=== PATIENT | female | born 1985 | race Caucasian/White ===

== ENCOUNTER 2024-05-29 07:34 | Inpatient (IN) | payer OTHER ==
[~2024-05-29] VITALS: Ht 162.6 cm; Wt 92.2 kg
[~2024-05-29 07:34] MED LIST: Prednisone20 MG PO
[2024-05-29] MEDS ORDERED: Ondansetron HCl 2 MG / ML 2ML Vial ONE (07:38)
[2024-05-29] MEDS ORDERED: Ondansetron HCl 2 MG / ML 2ML Vial IV ONE (07:45)
[2024-05-29] MEDS ORDERED: HYDROmorphone HCl/Pf 1MG SYR IV ONE ×2 (07:45→12:00)
[2024-05-29 07:59] LABS: BASOPHILS ABSOLUTE AUTO 0.08 K/mm3 (0.00-0.23); BASOPHILS PERCENT AUTO 0 % (0-2); EOSINOPHILS ABSOLUTE AUTO 0.18 K/mm3 (0.00-0.68); EOSINOPHILS PERCENT AUTO 1 % (0-6); Hematocrit 51.9 % (33.0-51.0); Hemoglobin 17.4 g/dL (11.5-16.0); IMMATURE GRAN ABSOLUTE AUTO 0.28 K/mm3 (0.00-0.10); IMMATURE GRAN PERCENT AUTO 1 % (0-1); LYMPHOCYTES ABSOLUTE AUTO 4.32 K/mm3 (0.84-5.20); LYMPHOCYTES PERCENT AUTO 19 % (21-46); MONOCYTES ABSOLUTE AUTO 0.76 K/mm3 (0.16-1.47); MONOCYTES PERCENT AUTO 3 % (4-13); Mean Corpuscular HGB 30.6 pg (26.0-34.0); Mean Corpuscular HGB Conc 33.5 g/dL (31.5-36.5); Mean Corpuscular Volume 91 fL (80-100); Mean Platelet Volume 9.6 fL (9.1-12.4); NEUTROPHILS ABSOLUTE AUTO 17.36 K/mm3 (1.96-9.15); NEUTROPHILS PERCENT AUTO 76 % (41-73); Platelet Count 532 K/mm3 (150-400); RDW Coefficient Variation 12.4 % (11.7-14.2); RDW Standard Deviation 41.1 fL (35.1-46.3); Red Blood Cell Count 5.69 M/mm3 (3.80-5.20); White Blood Cell Count 22.98 K/mm3 (4.00-11.30)
[2024-05-29] MEDS ORDERED: ESCI10 PO (08:09)
[2024-05-29 08:17] LABS: Albumin, Blood 3.9 g/dL (3.4-5.0); Bilirubin, Total 0.4 mg/dL (0.1-1.0); Calcium, Blood 9.4 mg/dL (8.5-10.1); Globulin, Blood 4.1 g/dL (2.2-4.0); Magnesium, Blood 2.1 mg/dL (1.6-2.4); Potassium, Blood 3.2 mmol/L (3.5-5.5)
[2024-05-29] MEDS ORDERED: NS 1,000 ML IV SCH (08:30)
[2024-05-29] MEDS ORDERED: Piperacillin/Tazobactam Sod 3.375 GM in NS 100 ML IV ONE (09:25)
[2024-05-29] MEDS ORDERED: Lactated Ringer's 1,000 ML IV ONE (09:35)
[2024-05-29] MEDS ORDERED: HYDROmorphone HCl/Pf 1MG SYR IV PRN (13:00)
[2024-05-29] MEDS ORDERED: Ondansetron HCl 2 MG / ML 2ML Vial IV PRN ×2 (13:00)
[2024-05-29] MEDS ORDERED: Lactated Ringer's 1,000 ML IV SCH (13:00)
[2024-05-29 14:11] LABS: BASOPHILS ABSOLUTE AUTO 0.03 K/mm3 (0.00-0.23); BASOPHILS PERCENT AUTO 0 % (0-2); EOSINOPHILS PERCENT AUTO 0 % (0-6); Hematocrit 37.2 % (33.0-51.0); Hemoglobin 13.2 g/dL (11.5-16.0); IMMATURE GRAN ABSOLUTE AUTO 0.05 K/mm3 (0.00-0.10); IMMATURE GRAN PERCENT AUTO 0 % (0-1); LYMPHOCYTES ABSOLUTE AUTO 0.99 K/mm3 (0.84-5.20); LYMPHOCYTES PERCENT AUTO 6 % (21-46); MONOCYTES ABSOLUTE AUTO 0.45 K/mm3 (0.16-1.47); MONOCYTES PERCENT AUTO 3 % (4-13); Mean Corpuscular HGB 31.8 pg (26.0-34.0); Mean Corpuscular HGB Conc 35.5 g/dL (31.5-36.5); Mean Corpuscular Volume 90 fL (80-100); Mean Platelet Volume 9.8 fL (9.1-12.4); NEUTROPHILS ABSOLUTE AUTO 14.11 K/mm3 (1.96-9.15); NEUTROPHILS PERCENT AUTO 90 % (41-73); Platelet Count 358 K/mm3 (150-400); RDW Coefficient Variation 12.4 % (11.7-14.2); RDW Standard Deviation 40.5 fL (35.1-46.3); Red Blood Cell Count 4.15 M/mm3 (3.80-5.20); White Blood Cell Count 15.63 K/mm3 (4.00-11.30)
[2024-05-29 15:22] VITALS: BP 116/83
--- NOTE | 2024-05-29 16:46 | NUR ---
THIS MUD GRINDER OFFERED TO PUT ON SCDS.PATIENT DECLINED AT THIS TIME.RN NOTIFIED.
[2024-05-29] MEDS ORDERED: Piperacillin/Tazobactam Sod 4.5 GM in NS 100 ML IV SCH (17:00)
--- NOTE | 2024-05-29 18:12 | NUR ---
PT QUITE PLEASANT AND COOPERATIVE SINCE ADMIT THIS AFT. AMBULATING TO BATHROOM IND TO SBA. IN TO VISIT THIS MARIZA. PT DID HAVE COUPLE SMALL SPOTS OF BLOOD IN URINE THIS MARIZA. HR REG, NO MURMUR NO EDEMA. LUNGS CLEAR, RESP EASY, UNLABORED. ON R.A. NO SOB, IV FLUIDS STARTED PER EMAR. NO C/O PAIN, BED IN LOW POSITION, CALL LITE IN REACH, CALLS APROP
[2024-05-29] MEDS ORDERED: Potassium Chloride 40 MEQ in NS 250 ML IV ONE (18:30)
[2024-05-29 19:04] VITALS: BP 121/82
[2024-05-29] MEDS ORDERED: Potassium Chloride 20 MEQ/15 ML UDC PO ONE (20:25)
[2024-05-29] MEDS ORDERED: Lactobacil 2-S.Thermo-Bifido 1 1 Cap PO SCH (21:00)
[2024-05-29] MEDS ORDERED: NS 250 ML IV PRN (22:20)
[2024-05-30 04:50] VITALS: BP 115/77
--- NOTE | 2024-05-30 05:08 | NUR ---
SHIFT SUMMARY NOC PT A/O X 4. PLEASANT AND COOPERATIVE WITH CARE. VSS. PT TOLERATING CLEAR LIQUID DIET WELL. ON TELE SINUS IN 'S. PT PAIN BEING MANAGED PER EMAR. GI PCR STILL OUTSTANDING. LR INFUSING @ 100 ML/HR BAG 2/. IV ABX Q6H. PT HAS BLOOD IN URINE, BUT CURRENTLY IS MENSTRUATING. PT CURRENTLY RESTING WITH SPOUSE BEDSIDE, BED IN LOWEST POSITION, AND CALL LIGHT WITHIN REACH.
[2024-05-30 05:26] LABS: BASOPHILS ABSOLUTE AUTO 0.03 K/mm3 (0.00-0.23); BASOPHILS PERCENT AUTO 0 % (0-2); EOSINOPHILS ABSOLUTE AUTO 0.06 K/mm3 (0.00-0.68); EOSINOPHILS PERCENT AUTO 1 % (0-6); Hematocrit 38.2 % (33.0-51.0); Hemoglobin 12.7 g/dL (11.5-16.0); IMMATURE GRAN ABSOLUTE AUTO 0.03 K/mm3 (0.00-0.10); IMMATURE GRAN PERCENT AUTO 0 % (0-1); LYMPHOCYTES ABSOLUTE AUTO 2.96 K/mm3 (0.84-5.20); LYMPHOCYTES PERCENT AUTO 28 % (21-46); MONOCYTES ABSOLUTE AUTO 0.67 K/mm3 (0.16-1.47); MONOCYTES PERCENT AUTO 6 % (4-13); Mean Corpuscular HGB 30.7 pg (26.0-34.0); Mean Corpuscular HGB Conc 33.2 g/dL (31.5-36.5); Mean Corpuscular Volume 92 fL (80-100); Mean Platelet Volume 10.2 fL (9.1-12.4); NEUTROPHILS ABSOLUTE AUTO 7.03 K/mm3 (1.96-9.15); NEUTROPHILS PERCENT AUTO 65 % (41-73); Platelet Count 332 K/mm3 (150-400); RDW Coefficient Variation 12.7 % (11.7-14.2); RDW Standard Deviation 43.1 fL (35.1-46.3); Red Blood Cell Count 4.14 M/mm3 (3.80-5.20); White Blood Cell Count 10.78 K/mm3 (4.00-11.30)
[2024-05-30 05:49] LABS: Calcium, Blood 8.9 mg/dL (8.5-10.1); Creatinine, Blood 0.75 mg/dL (0.40-1.00); Potassium, Blood 3.7 mmol/L (3.5-5.5)
[2024-05-30 07:27] VITALS: BP 119/81
[2024-05-30] MEDS ORDERED: Citalopram Hydrobromide 20 MG Tab PO SCH (09:00)
[2024-05-30 14:30] VITALS: BP 143/106
[2024-05-30 15:03] VITALS: BP 111/71
--- NOTE | 2024-05-30 15:04 | NUR ---
ASSUMPTION OF CARE THIS RN ASSUMED CARE FOLLOWING REPORT FROM ZAIRA ELDER. PATIENT ALERT AND ORIENTED X4. INDEPENDENT IN ROOM. COMMUNICATING NEEDS EFFECTIVELY. ABD PAIN 2/10 FOLLOWING IV DILAUDID ADMINISTRATION PRIOR TO ASSUMPTION OF CARE. VSS. TELEMETRY SHOWING SINUS 72. BP IMPROVED W/ PAIN MANAGEMENT. ON ROOM AIR, SATs >90%. DENIES N/V. AWAITING GI PANEL - STOOL SAMPLE SENT PRIOR TO ASSUMPTION OF CARE. VOIDING. CALL LIGHT IN REACH. SPOUSE AT BEDSIDE.
[2024-05-30 16:13] LABS: Adenovirus F 40/41 Not Detected (NOT DETECT); Astrovirus Not Detected (NOT DETECT); Campylobacter Sp Not Detected (NOT DETECT); Cryptosporidium Not Detected (NOT DETECT); Cyclospora Cayetanensis Not Detected (NOT DETECT); E. Coli O157 Not Detected (NOT DETECT); Entamoeba Histolytica Not Detected (NOT DETECT); Enteroaggregative E. coli-EAEC Not Detected (NOT DETECT); Enteropathogenic E. coli-EPEC Not Detected (NOT DETECT); Enterotoxigenic E. coli-ETEC Not Detected (NOT DETECT); Giardia Lamblia Not Detected (NOT DETECT); Norovirus GI/GII Not Detected (NOT DETECT); Plesiomonas Shigelloides Not Detected (NOT DETECT); Rotavirus A Not Detected (NOT DETECT); Salmonella Sp Not Detected (NOT DETECT); Sapovirus Not Detected (NOT DETECT); Shiga Toxin-prod E. coli-STEC Not Detected (NOT DETECT); Shigella/Enteroin E. coli-EIEC Not Detected (NOT DETECT); Vibrio Cholerae Not Detected (NOT DETECT); Vibrio Sp Not Detected (NOT DETECT); Yersinia Enterocolitica Not Detected (NOT DETECT)
--- NOTE | 2024-05-30 17:31 | NUR ---
SHIFT SUMMARY NO ACUTE CHANGES SINCE ASSUMPTION OF CARE NOTE. PATIENT REMAINS ALERT AND ORIENTED X4. INDEPENDENT IN ROOM. COMMUNICATES NEEDS EFFECTIVELY. VSS. DENIES ABD PAIN AT THIS TIME. TOLERATING CLEAR LIQUID DIET. GI PANEL RESULTS NEGATIVE. CALL LIGHT IN REACH.
[2024-05-30 19:41] VITALS: BP 109/86
[2024-05-31 00:04] VITALS: BP 113/78
[2024-05-31 04:18] VITALS: BP 107/79
[2024-05-31 04:32] LABS: BASOPHILS ABSOLUTE AUTO 0.04 K/mm3 (0.00-0.23); BASOPHILS PERCENT AUTO 1 % (0-2); EOSINOPHILS ABSOLUTE AUTO 0.25 K/mm3 (0.00-0.68); EOSINOPHILS PERCENT AUTO 4 % (0-6); Hematocrit 34.6 % (33.0-51.0); Hemoglobin 11.8 g/dL (11.5-16.0); IMMATURE GRAN ABSOLUTE AUTO 0.02 K/mm3 (0.00-0.10); IMMATURE GRAN PERCENT AUTO 0 % (0-1); LYMPHOCYTES ABSOLUTE AUTO 2.65 K/mm3 (0.84-5.20); LYMPHOCYTES PERCENT AUTO 40 % (21-46); MONOCYTES ABSOLUTE AUTO 0.55 K/mm3 (0.16-1.47); MONOCYTES PERCENT AUTO 8 % (4-13); Mean Corpuscular HGB 31.7 pg (26.0-34.0); Mean Corpuscular HGB Conc 34.1 g/dL (31.5-36.5); Mean Corpuscular Volume 93 fL (80-100); Mean Platelet Volume 9.5 fL (9.1-12.4); NEUTROPHILS ABSOLUTE AUTO 3.17 K/mm3 (1.96-9.15); NEUTROPHILS PERCENT AUTO 48 % (41-73); Platelet Count 278 K/mm3 (150-400); RDW Coefficient Variation 12.7 % (11.7-14.2); RDW Standard Deviation 43.3 fL (35.1-46.3); Red Blood Cell Count 3.72 M/mm3 (3.80-5.20); White Blood Cell Count 6.68 K/mm3 (4.00-11.30)
[2024-05-31 04:54] LABS: Albumin, Blood 3.3 g/dL (3.4-5.0); Bilirubin, Total 0.6 mg/dL (0.1-1.0); Bun/Creatinine Ratio 6.6 (12.0-20.0); Calcium, Blood 8.9 mg/dL (8.5-10.1); Creatinine, Blood 0.92 mg/dL (0.40-1.00); Globulin, Blood 3.2 g/dL (2.2-4.0); Potassium, Blood 3.8 mmol/L (3.5-5.5); Total Protein, Blood 6.5 g/dL (6.4-8.2)
--- NOTE | 2024-05-31 06:05 | NUR ---
NOC SUMMARY- PT ONLY REQUIRED PAIN MEDS TWICE THIS SHIFT. PT REPORTS SUDDEN ONSET OF PAIN WITH BM'S. PT DENIES ANY N/V. PT REPORTS SHE IS STILL HAVING DIARRHEA. NO OTHER ISSUES NOTED. PT SLEPT OFF AND ON. CALL LIGHT IN REACH.
[2024-05-31 07:13] VITALS: BP 107/78
[2024-05-31] MEDS ORDERED: HYDROmorphone HCl 2 MG Tab PO PRN (09:50)
[2024-05-31] MEDS ORDERED: Loperamide HCl 2 MG Cap PO PRN (09:55)
--- NOTE | 2024-05-31 12:49 | NUR ---
MORNING NOTE THIS RN ASSUMED CARE AT APPROX 0715. PATIENT ALERT AND ORIENTED X4. COMMUNICATES NEEDS EFFECTIVELY. INDEPENDENT IN ROOM. VSS. TELEMETRY SHOWING SINUS W/ BBB 60s-70s. BP STABLE. ON ROOM AIR, SATs >90%. TOLERATING CLEAR LIQUID DIET - ORDER TO ADVANCE DIET TOLERATED PER MD LOU. PATIENT REQUESTING TO REMAIN ON CURRENT DIET. X1 EPISODE OF LOOSE STOOL THIS MORNING - PAIN INCREASED POST BM. MD VIDAL AWARE - ORDER TO SWITCH TO PO DILAUDID IN PLACE. ADMINISTERED PER EMAR WITH RELIEF. VOIDING. CALL LIGHT IN REACH. SPOUSE AT BEDSIDE.
[2024-05-31 15:11] VITALS: BP 127/79
--- NOTE | 2024-05-31 16:20 | NUR ---
SHIFT SUMMARY NO ACUTE CHANGES SINCE MORNING NOTE. PATIENT REMAINS ALERT AND ORIENTED X4. INDEPENDENT IN ROOM. AMBULATING IN HALLWAY THIS AFTERNOON. VSS. NO EVENTS REPORTED BY TELEMETRY. SBP 100s-120s. MAP >65. DENIES CHEST PAIN, PRESSURE. ON ROOM AIR, SATs >90%. DENIES SOB. TOLERATING CLEAR LIQUID DIET. IV SALINE LOCKED IN BETWEEN ABX. MANAGING PAIN PER EMAR. INTERMITTENT EPISODES OF LOOSE STOOL - DENIES BLOOD IN STOOL. ORDERED STOOL SAMPLE COLLECTED AND SENT TO LAB - WAITING FOR RESULTS. VOIDING. SPOUSE AT BEDSIDE. CALL LIGHT IN REACH.
[2024-05-31 19:06] VITALS: BP 124/89
[2024-05-31 23:40] VITALS: BP 131/90
[2024-06-01 04:09] VITALS: BP 116/82
--- NOTE | 2024-06-01 04:25 | NUR ---
NOC SUMMARY- PT PAIN MANAGED WELL. PT HAS RESTED COMFORTABLY. PT TOLERATING PO FLUIDS. PT VOIDING WELL. PT STATES ONLY ONE EPISODE OF LOOSE STOOL. PT STAYD THE NIGHT WITH PT. NO NEW ISSUES. CALL LIGHT IN REACH.
[2024-06-01 06:59] VITALS: BP 125/86
--- NOTE | 2024-06-01 09:58 | NUR ---
MORNING NOTE THIS RN ASSUMED CARE AT APPROX 0715. PATIENT ALERT AND ORIENTED X4. COMMUNICATES NEEDS EFFECTIVELY. VSS. TELEMETRY SHOWING SINUS 60s-70s. SBP 110s-120s. MAP >65. DENIES CHEST PAIN, PRESSURE. ON ROOM AIR, SATs >90%. DENIES SOB. REPORTS X1 EPISODE OF LOOSE STOOL THIS MORNING - DENIES BLOOD IN STOOL. TOLERATING CLEAR LIQUID DIET - DIET ADVANCED TO FULL LIQUID BY MD VIDAL. STARTED ON ORAL STEROIDS - ADMINISTERED PER EMAR. IF TOLERATING DIET, POSSIBLE DC HOME TODAY. DENIES ABD PAIN AT THIS TIME. VOIDING. SPOUSE AT BEDSIDE. CALL LIGHT IN REACH.
[2024-06-01] MEDS ORDERED: PredniSONE 20 MG Tab PO SCH (10:00)
[2024-06-01 11:34] VITALS: BP 127/89
[2024-06-01] MEDS ORDERED: HYDMOR2 PO (13:48)
[2024-06-01] MEDS ORDERED: PRED20 PO (13:49)
[2024-06-01] MEDS ORDERED: LOPE2C PO (13:49)
[2024-06-01] MEDS ORDERED: LACT PO (13:50)
[2024-06-01] MEDS ORDERED: AMOCLA500 PO (13:51)
--- NOTE | 2024-06-01 14:09 | NUR ---
DISCHARGE NOTE NO ACUTE CHANGES SINCE MORNING NOTE. PATIENT TOLERATING FULL LIQUID DIET. EAGER TO DC HOME. MD VIDAL CONTACTED. DC HOME ORDERED. IV REMOVED. TELEMETRY REMOVED. WRITTEN AND VERBAL EDUCATION PROVIDED - PATIENT AND HER SPOUSE STATE UNDERSTANDING. PERSONAL BELONGINGS WITH PATIENT. PATIENT DCd OFF UNIT AT APPROX 1410.
[2024-06-03 21:38] LABS: CALPROTECTIN,FECAL 54 ug/g (<=49)
== END 2024-06-01 14:10 | disposition home or self-care (01) | DRG 872 ==
LOC: ER 07:34 → ERHOLD 12:57 → SURS 15:19
PROVIDERS: Student in an Organized Health Care Education/Training Program; ADMIT Internal Medicine
DX: A41.9 Sepsis, unspecified organism (principal); E87.20 Acidosis, unspecified; K62.5 Hemorrhage of anus and rectum; F17.210 Nicotine dependence, cigarettes, uncomplicated; E87.6 Hypokalemia; F32.A Depression, unspecified; F10.90 Alcohol use, unspecified, uncomplicated; R65.20 Severe sepsis without septic shock; K52.9 Noninfective gastroenteritis and colitis, unspecified; Z91.010 Allergy to peanuts; Z79.899 Other long term (current) drug therapy
CPT/HCPCS: 36415; 74174; 74177; 80048; 80053; 83605; 83735; 84703; 85025; 85651; 86140; 87507; 93005; 93010; 94760; 96365-59; 96375; 99285-25; A9270; J1171; J2405; J2543; J3480; J7030; J7050; J7120; J7512; Q9967

== ENCOUNTER 2024-08-27 20:27 | Emergency (ER) | payer OTHER ==
[~2024-08-27] VITALS: Ht 162.6 cm; Wt 88.5 kg
[~2024-08-27 20:27] MED LIST changes: +AMOCLA500 PO; +ESCI10 PO; +HYDMOR2 PO; +LACT PO; +LOPE2C PO; +PRED20 PO
[2024-08-27 20:59] VITALS: BP 117/95
[2024-08-27 21:23] LABS: BASOPHILS ABSOLUTE AUTO 0.05 K/mm3 (0.00-0.23); BASOPHILS PERCENT AUTO 1 % (0-2); EOSINOPHILS ABSOLUTE AUTO 0.17 K/mm3 (0.00-0.68); EOSINOPHILS PERCENT AUTO 2 % (0-6); Hematocrit 39.5 % (33.0-51.0); Hemoglobin 13.5 g/dL (11.5-16.0); IMMATURE GRAN ABSOLUTE AUTO 0.02 K/mm3 (0.00-0.10); IMMATURE GRAN PERCENT AUTO 0 % (0-1); LYMPHOCYTES ABSOLUTE AUTO 2.75 K/mm3 (0.84-5.20); LYMPHOCYTES PERCENT AUTO 27 % (21-46); MONOCYTES ABSOLUTE AUTO 0.95 K/mm3 (0.16-1.47); MONOCYTES PERCENT AUTO 9 % (4-13); Mean Corpuscular HGB Conc 34.2 g/dL (31.5-36.5); Mean Corpuscular Volume 88 fL (80-100); NEUTROPHILS ABSOLUTE AUTO 6.16 K/mm3 (1.96-9.15); NEUTROPHILS PERCENT AUTO 61 % (41-73); NRBC ABSOLUTE 0.00 K/mm3 (0.00-0.02); NRBC Auto 0.0 /100 WBC (0.0-0.2); Platelet Count 380 K/mm3 (150-400); RDW Coefficient Variation 13.0 % (11.7-14.2); RDW Standard Deviation 41.7 fL (35.1-46.3)
[2024-08-27 21:46] LABS: Alanine Aminotransfer (ALT/SGP 26 U/L (12-78); Albumin, Blood 3.7 g/dL (3.4-5.0); Albumin/Globulin Ratio 0.9 (0.8-1.8); Anion Gap 9 mmol/L (3-11); Aspartate Aminotrans (AST/SGOT 18 U/L (12-37); Beta HCG, Quantitative, Serum <1 mIU/mL (0-3); Bilirubin, Total 0.7 mg/dL (0.1-1.0); Blood Urea Nitrogen 10 mg/dL (8-24); CO2, Blood 25 mmol/L (21-32); Calcium, Blood 9.2 mg/dL (8.5-10.1); Chloride, Blood 109 mmol/L (98-108); Creatinine, Blood 0.75 mg/dL (0.40-1.00); Globulin, Blood 4.3 g/dL (2.2-4.0); Glucose, Blood 99 mg/dL (70-99); Potassium, Blood 4.1 mmol/L (3.5-5.5); Sodium, Blood 139 mmol/L (136-145); Total Protein, Blood 8.0 g/dL (6.4-8.2)
[2024-08-28] MEDS ORDERED: ONDA4 PO (03:07)
[2024-08-28] MEDS ORDERED: DICY20 PO (03:07)
== END 2024-08-28 03:36 | disposition home or self-care (01) ==
LOC: ER 20:27
PROVIDERS: Student in an Organized Health Care Education/Training Program
DX: R10.30 Lower abdominal pain, unspecified (principal); F17.200 Nicotine dependence, unspecified, uncomplicated
CPT/HCPCS: 74177; 80053; 83690; 84484; 84702; 85025; 93005; 93010; 99284-25; Q9967

== ENCOUNTER 2024-11-10 09:55 | Day surgery (SDC) | payer OTHER ==
[~2024-11-10] VITALS: Ht 162.6 cm; Wt 84.1 kg
[~2024-11-10 09:55] MED LIST changes: +DICY20 PO; +ONDA4 PO
[2024-11-10 13:40] VITALS: BP 110/72
== END 2024-11-10 12:28 | disposition home or self-care (01) ==
LOC: ORSCSDS 09:55
PROVIDERS: Specialist
PROC: 0DBL8ZX Excision of Transverse Colon, Via Natural or Artificial Opening Endoscopic, Diagnostic (ICD-10-PCS; principal; 2024-11-10 11:30)
PROC: 0DBH8ZX Excision of Cecum, Via Natural or Artificial Opening Endoscopic, Diagnostic (ICD-10-PCS; principal; 2024-11-10 11:30)
DX: R93.3 Abnormal findings on diagnostic imaging of other parts of digestive tract (principal); D12.0 Benign neoplasm of cecum; D12.3 Benign neoplasm of transverse colon; K64.8 Other hemorrhoids; R19.4 Change in bowel habit; Z79.899 Other long term (current) drug therapy
CPT/HCPCS: 88305; J2704; J7120